=== PATIENT | female | born 1965 | race Caucasian/White ===

== ENCOUNTER 2016-04-18 16:11 | Outpatient (CLI) ==
[2016-04-18 16:38] LABS: ANION GAP 11.9; BUN/CREATININE RATIO 9.63; CALCIUM 9.9 mg/dL (8.2-10.2); CREATININE 0.83 mg/dL (0.60-1.30); POTASSIUM 2.9 mmol/L (3.5-5.10)
== END 2016-04-18 16:12 | disposition home or self-care (01) ==
LOC: LAB 16:11
PROVIDERS: ATTEND Nurse Practitioner Family
DX: E87.6 Hypokalemia (principal)
CPT/HCPCS: 36415; 80048

== ENCOUNTER 2016-04-23 12:34 | Outpatient (CLI) ==
[2016-04-23 15:01] LABS: ALBUMIN 3.6 g/dL (3.4-5.0); ALBUMIN/GLOBULIN RATIO 0.73; ANION GAP 13.8; BILIRUBIN,TOTAL 0.71 mg/dL (0.00-1.20); BUN/CREATININE RATIO 10.34; CALCIUM 9.9 mg/dL (8.2-10.2); CREATININE 0.87 mg/dL (0.60-1.30); POTASSIUM 3.8 mmol/L (3.5-5.10); TOTAL PROTEIN 8.5 g/dL (6.4-8.2)
== END 2016-04-23 12:35 | disposition home or self-care (01) ==
LOC: LAB 12:34
PROVIDERS: ATTEND Nurse Practitioner Family
DX: E87.6 Hypokalemia (principal); E03.9 Hypothyroidism, unspecified; R53.83 Other fatigue; I10 Essential (primary) hypertension; Z86.39 Personal history of other endocrine, nutritional and metabolic disease
CPT/HCPCS: 36415; 80053; 82306; 84443

== ENCOUNTER 2016-06-01 07:22 | Emergency (ER) ==
[2016-06-01 07:29] VITALS: BP 143/89; TEMP 98.1; BMI 28.6
[2016-06-01] MEDS ORDERED: ZOFRAN 4 MG/2 ML IM STA (07:43)
--- NOTE | 2016-06-01 07:47 | ED.PDOC ---
General ED Provider: Dr. AVERY COTE Chief Complaint: Cough Stated Complaint: been hurting on the left side of the belly, vomited couple days but not today, was started on potassium pills, also has been coughing for couple days, took antibiotics x 2. Time Seen by Physician: 07:45 Mode of Arrival: Walk-In Information Source: Patient Primary Care Provider: AVERY C[facility] Nursing and Triage Documentation Reviewed and Agree: Yes GI Complaint Exam - Abdominal Pain Complaint/Exam Onset: Gradual Symptoms Are: Still present Timing: Constant Initial Severity: Moderate Current Severity: Moderate Location of Pain: LLQ Character: Reports: Dull, Aching Aggravating: Reports: Movement Alleviating: Reports: Rest Associated Signs and Symptoms: Reports: Cough, Urinary frequency. Denies: Diaphoresis, Fever, Chest pain, Dizziness, Back pain, Constipation, Blood in stool, Dysuria, Decreased urine output, Decreased appetite, Vaginal bleeding, Vaginal discharge, Nausea, Vomiting, Diarrhea, Sore throat, Decreased activity AAA Risk Factors: Reports: None Cardiac Risk Factors: Reports: None Ectopic Risk Factors: Reports: None Ovarian Torsion Risk Factors: Reports: None Surgical Obstruction Risk Factors: Reports: None Related Surgical History: Reports: None Patient Rh Status: Unknown Abdominal Findings: Absent: Pulsatile mass, Abdominal distention, Unequal femoral pulses Differential Diagnoses: Diverticulitis, UTI Review of Systems - Review Of Systems Constitutional: Reports: No symptoms Eyes: Reports: No symptoms Ears, Nose, Mouth, Throat: Reports: No symptoms Respiratory: Reports: Cough Cardiac: Reports: No symptoms GI: Reports: Abdominal pain : Reports: Burning, Dysuria Musculoskeletal: Reports: No symptoms Skin: Reports: No symptoms Neurological: Reports: No symptoms Endocrine: Reports: No symptoms Hematologic/Lymphatic: Reports: No symptoms All Other Systems: Reviewed and Negative Past Medical History - Past Medical History Previously Healthy: No Endocrine: Reports: Hypothyroid Cardiovascular: Reports: Hypertension Respiratory: Reports: None Hematological: Reports: None Gastrointestinal: Reports: None Genitourinary: Reports: None Neuro/Psych: Reports: None Musculoskeletal: Reports: None Cancer: Reports: None Last Menstrual Period: few days ago - Surgical History General Surgical History: Reports: Other (rt leg surgery) - Family History Family History: Reports: Cancer (lung father) - Social History Smoking Status: Current every day smoker Smoking Cessation Counseling Time: > 3 min - 10 min Hx Substance Use: No Alcohol Screening: None Physical Exam - Physical Exam Appearance: Well-appearing, No pain distress, Well-nourished Eyes: BALTA, EOMI, Conjunctiva clear ENT: Ears normal, Nose normal, Oropharynx normal Respiratory: Airway patent, Breath sounds clear, Breath sounds equal, Respirations nonlabored Cardiovascular: RRR, Pulses normal, No rub, No murmur GI/: Soft, No masses, Bowel sounds normal, No Organomegaly, Tender (all over the belly) Musculoskeletal: Normal strength, ROM intact, No edema, No calf tenderness Skin: Warm, Dry, Normal color Neurological: Sensation intact, Motor intact, Reflexes intact, Cranial nerves intact, Alert, Oriented Psychiatric: Affect appropriate, Mood appropriate Critical Care Note - Critical Care Note Total Time (mins): 0 Course - Course Hematology/Chemistry: 06/01/16 08:04 06/01/16 08:04 Orders, Labs, Meds: Lab Review 06/01/16 06/01/16 08:04 08:10 WBC 9.91 RBC 3.98 L Hgb 11.6 L Hct 34.8 L MCV 87.4 MCH 29.1 MCHC 33.3 RDW Coeff of Fang 13.2 Plt Count 366 Immature Gran % (Auto) 0.4 Neut % (Auto) 73.1 Lymph % (Auto) 15.8 [place] % (Auto) 6.9 Eos % (Auto) 3.5 Baso % (Auto) 0.3 Immature Gran # (Auto) 0.0 Neut # 7.2 H Lymph # 1.6 Oldham # 0.7 Eos # 0.4 Baso # 0.0 Sodium 139 Potassium 3.5 Chloride 100 Carbon Dioxide 27 Anion Gap 15.5 BUN 9 Creatinine 0.79 Estimated GFR (MDRD) 77.00 BUN/Creatinine Ratio 11.39 Glucose 84 Calcium 9.4 Total Bilirubin 0.52 AST 26 ALT 12 Alkaline Phosphatase 71 Total Protein 7.9 Albumin 3.2 L Globulin 4.7 Albumin/Globulin Ratio 0.68 Urine Color Yellow Urine Clarity Clear Urine pH 8.5 Ur Specific Mcdonough 1.015 Urine Protein 1+ Urine Glucose (UA) Negative Urine Ketones Negative Urine Blood Trace-intact Urine Nitrite Negative Urine Bilirubin Negative Urine Urobilinogen 0.2 Ur Leukocyte Esterase Negative Urine Microscopic RBC 2-5 Urine Microscopic WBC 2-5 Ur Squamous Epith Cells Not present Urine Test Negative Orders Category Date Time Status NPO REMINDER: IMAGING ONCE CARE 06/01/16 09:18 Completed CBC W/ AUTO DIFF Stat LAB 06/01/16 08:04 Completed COMPREHENSIVE METABOLIC PANEL Stat LAB 06/01/16 08:04 Completed URINALYSIS C & S IF INDICATED Stat LAB 06/01/16 08:10 Completed URINE Stat LAB 06/01/16 08:10 Completed Alprazolam [Xanax] MEDS 06/01/16 11:13 Discontinued 0.5 mg .ROUTE .STK-MED ONE Alprazolam [Xanax] MEDS 06/01/16 11:07 Discontinued 0.5 mg PO ONCE STA Ondansetron HCl/Pf [Zofran 4 mg/2 ml] MEDS 06/01/16 07:43 Discontinued 4 mg IM ONCE STA CT ABDOMEN/PELVIS WO CONTRAST Stat RADS 06/01/16 07:[address] CHEST W/CONTRAST Stat RADS 06/01/16 09:17 Completed Medications Discontinued Medications Generic Name Dose Route Start Last Admin Trade Name Freq PRN Reason Stop Dose Admin Alprazolam 0.5 mg 06/01/16 11:07 Xanax PO 06/01/16 11:08 ONCE STA Ondansetron HCl 4 mg 06/01/16 07:43 06/01/16 08:10 Zofran 4 Mg/2 Ml IM 06/01/16 07:44 4 mg ONCE STA Administration Vital Signs: Temp Pulse Resp BP Pulse Ox 06/01/16 07:24 98.1 F 83 16 143/89 H 98 Departure - Departure Time of Disposition: 11:17 Disposition: HOME SELF-CARE Discharge Problem: Lung cancer Qualifiers: Laterality: right Lung location: overlapping sites Qualifier Code: (C34.81) Malignant neoplasm of overlapping sites of right bronchus and lung Instructions: Needle Biopsy of the Lung (ED) Condition: Stable Pt referred to PMD for follow-up: Yes Additional Instructions: needs f/u with Dr Augustine on 13 june. if the symptoms get worse please go ER Xanax 0.5 po bid prn x 20 f/u with PMD 3-4 days Allergies/Adverse Reactions: Allergies codeine Allergy (Severe, Unverified 06/01/16 07:29) nausea Novicaine Allergy (Severe, Uncoded 02/17/17 07:29) Heart races Disposition Discussed With: Patient, Family
[2016-06-01 08:08] LABS: BASOPHILS % (AUTO) 0.3 % (0.0-3.0); EOSINOPHILS # (AUTO) 0.4 K/ul (0.0-0.7); EOSINOPHILS % (AUTO) 3.5 % (0.0-7.0); HEMATOCRIT 34.8 % (37.0-47.0); HEMOGLOBIN 11.6 g/dl (12.0-16.0); IMMATURE GRANULOCYTE % (AUTO) 0.4 % (0.0-5.0); LYMPHOCYTES # (AUTO) 1.6 K/uL (0.60-3.4); LYMPHOCYTES % (AUTO) 15.8 (10.0-50.0); MEAN CORPUSCULAR HEMOGLOBIN 29.1 pg (27.0-31.0); MEAN CORPUSCULAR HGB CONC 33.3 (31.8-35.4); MEAN CORPUSCULAR VOLUME 87.4 fl (81.0-99.0); MONOCYTES # (AUTO) 0.7 K/uL (0.4-2.0); MONOCYTES % (AUTO) 6.9 (0-10); NEUTROPHILS # (AUTO) 7.2 K/ul (2.0-6.9); NEUTROPHILS % (AUTO) 73.1; PLATELET COUNT 366 10^3/uL (140-440); RED BLOOD COUNT 3.98 10^6/ul (4.20-5.40); WHITE BLOOD COUNT 9.91 K/ul (4.6-10.2)
[2016-06-01 08:14] LABS: BILIRUBIN,URINE Negative (NEGATIVE); KETONES,URINE Negative (NEGATIVE); LEUKOCYTE ESTERASE ,URINE Negative (NEGATIVE); NITRITE,URINE Negative (NEGATIVE); PH,URINE 8.5 (5-9); PROTEIN,URINE 1+ (NEGATIVE); URINE, BLOOD Trace-intact (NEGATIVE)
[2016-06-01 08:18] LABS: ADD URINE MICROSCOPIC YES
[2016-06-01 08:19] LABS: URINE PREGNANCY INTERNAL QC INTERNAL QC VALID
[2016-06-01 08:25] LABS: ALBUMIN 3.2 g/dL (3.4-5.0); ALBUMIN/GLOBULIN RATIO 0.68; ANION GAP 15.5; BILIRUBIN,TOTAL 0.52 mg/dL (0.00-1.20); BUN/CREATININE RATIO 11.39; CALCIUM 9.4 mg/dL (8.2-10.2); CREATININE 0.79 mg/dL (0.60-1.30); POTASSIUM 3.5 mmol/L (3.5-5.10); TOTAL PROTEIN 7.9 g/dL (6.4-8.2)
--- NOTE | 2016-06-01 08:58 | CT ---
EXAM: CT abdomen pelvis without contrast HISTORY: Abdominal pain COMPARISON: CT abdomen 08/30/2008 TECHNIQUE: Serial axial images of the abdomen pelvis were performed from the lung bases through the inferior pelvis without contrast. These were viewed in multiple planes. FINDINGS: There is a large incompletely evaluated right middle lobe mass measuring 5.6 x 7.9 centim eters and is incompletely evaluated. The lung bases are otherwise unremarkable. Evaluation is limited due to lack of contrast. The liver is unremarkable. The gallbladder is yoshi l. The adrenal glands are unremarkable. The kidneys are unremarkable. The spleen is normal. The pancreas is unremarkable. The stomach is normal. Small bowel in the abdomen and pelvis. There is normal. The appendix is normal. The colon is unre markable. There is a small fat-containing umbilical hernia present. The uterus is unremarkable. T he urinary bladder is partially distended. The osseous structures demonstrate an expansile low atte nuation lesion in the sacrum measuring 1.3 x 2.4 cm, with Hounsfield units consistent with a cyst. There is no focal lytic or blastic lesion. IMPRESSION: 1. Large incompletely evaluated mass in the right middle lobe. CT chest with contrast versus PET CT is recommended to further evaluate. This is new in comparison to Chest x-ray 02/11/2010 with no mo re recent comparison available. 2. No acute intra-abdominal or pelvic process to account for patient's symptoms with a normal appea ring appendix. 3. Small fat-containing umbilical hernia. 4. Low attenuation expansile lesion in the inferior sacrum likely representing perineural cysts. I f further evaluation is indicated, MRI may be obtained.
--- NOTE | 2016-06-01 10:10 | CT ---
EXAM: CT THORAX HISTORY: Lung mass. TECHNIQUE: CT thorax with intravenous contrast. 5-mm axial sections. Coronal and sagittal re-forma tions. 75 ml Omnipaque COMPARISON: None FINDINGS: Normal heart size and thoracic aorta. Enlarged mediastinal lymph nodes with the largest conglomerat e located subcarinal at nearly 6 cm. There is a large right middle lobe soft tissue mass which measures approximately 7.4 x 5.7 x 7.1 cm. This mass abuts the cardiac border and the anterior pleura. A focal region of indistinct border i s seen with the anterior chest wall at the level of the lower medial aspect of the right breast whic h could indicate a focus of invasion, questionable. Central aspect of the mass is relatively low in attenuation as is the central aspect of the conglomerate subcarinal lymph node mass suggesting poss ible areas of early necrosis. There are a few small peripheral nodular opacities lateral to the mas s and also along the posterior aspect of the right lower lobe, the latter possibly simply representi ng areas of nonspecific pleural thickening. The lungs were otherwise unremarkable. No pleural flui d. The bones are grossly within normal limits.. Peripheral soft tissues at the level of the chest are grossly within normal limits. See also same day CT abdomen and pelvis report. IMPRESSION: Large right middle lobe soft tissue mass likely neoplastic. There is bulky mediastinal lymphadenopathy, likely metastatic. Further workup could include percutaneous sampling for tissue di agnosis.
[2016-06-01] MEDS ORDERED: XANAX PO STA (11:07)
[2016-06-01] MEDS ORDERED: XANAX ONE (11:13)
== END 2016-06-01 11:45 | disposition home or self-care (01) ==
LOC: ED 07:22
DX: C34.81 Malignant neoplasm of overlapping sites of right bronchus and lung (principal); R10.32 Left lower quadrant pain; R35.0 Frequency of micturition; R30.0 Dysuria; E03.9 Hypothyroidism, unspecified; I10 Essential (primary) hypertension; F17.210 Nicotine dependence, cigarettes, uncomplicated
CPT/HCPCS: 36415; 80053; 81001; 81025; 85025; 96372; 99284